=== PATIENT | male | born 1955 | race Caucasian/White ===

== ENCOUNTER 2023-05-10 14:15 | Emergency (ER) | payer MEDICARE, OTHER ==
[~2023-05-10] VITALS: Ht 182.9 cm; Wt 91.0 kg
[2023-05-10 15:09] LABS: Basophils # (auto) 0 10 ^3/uL (0-0.2); Basophils % (auto) 0.2 % (0.0-2.0); Eosinophils # (auto) 0.2 10 ^3/uL (0-0.8); Eosinophils % (auto) 3.3 % (0.0-7.0); Hematocrit 40.8 % (41.0-53.0); Lymphocytes # (auto) 2.4 10 ^3/uL (0.4-5.4); Lymphocytes % (auto) 38.9 % (10.0-50.0); Mean Corpuscular Hemoglobin 30.2 pg (28.0-32.0); Mean Corpuscular Hgb Conc. 34.4 g/dL (32.0-36.0); Mean Corpuscular Volume 87.9 fL (80.0-100.0); Monocytes # (auto) 0.6 10 ^3/uL (0-1.3); Monocytes % (auto) 10.4 % (0.0-12.0); Neutrophils # (auto) 2.9 10 ^3/uL (1.6-8.6); Neutrophils % (auto) 47.2 % (37.0-80.0); Nucleated Red Blood Cells % 0.1 %; Red Blood Cells 4.64 10^6/uL (4.5-5.90); Red Cell Distribution Width 12.5 % (11.8-14.3); White Blood Cell 6.1 10^3/uL (4.4-10.8)
[2023-05-10 15:30] LABS: Albumin 3.8 g/dL (3.4-5.0); BUN/Creatinine Ratio 15.2 (10.0-20.0); Calcium 8.7 mg/dL (8.5-10.1); Potassium 4.1 mmol/L (3.5-5.1)
[2023-05-10 15:33] LABS: Bilirubin, Total 0.4 mg/dL (0.2-1.0); Total Protein 7.5 g/dL (6.4-8.2)
[2023-05-10 15:58] LABS: Urine Bacteria NONE SEEN /hpf (None Seen); Urine Blood Negative /uL (Negative); Urine Specific Gravity 1.022 (1.001-1.035); Urine WBC 1 /hpf (0 - 3)
[2023-05-10] MEDS ORDERED: IBU600T PO (16:57)
[2023-05-10 17:24] VITALS: BP 138/84
== END 2023-05-10 17:25 | disposition home or self-care (01) ==
LOC: ER 14:15
DX: S86.912A Strain of unspecified muscle(s) and tendon(s) at lower leg level, left leg, initial encounter (principal); S86.911A Strain of unspecified muscle(s) and tendon(s) at lower leg level, right leg, initial encounter; M79.605 Pain in left leg; M79.604 Pain in right leg; I10 Essential (primary) hypertension; E11.9 Type 2 diabetes mellitus without complications; Z91.041 Radiographic dye allergy status; X58.XXXA Exposure to other specified factors, initial encounter; Y93.89 Activity, other specified; Y92.89 Other specified places as the place of occurrence of the external cause; Y99.8 Other external cause status
CPT/HCPCS: 36415; 80053; 81001; 82962; 83880; 84484; 85025; 93005; 93970

== ENCOUNTER 2023-12-16 13:14 | Emergency (ER) | payer MEDICARE, OTHER ==
[~2023-12-16] VITALS: Ht 390.7 cm; Wt 98.1 kg
[~2023-12-16 13:14] MED LIST: IBU600T PO
[2023-12-16 14:54] VITALS: BP 160/96; PULSE 76; RESP 18; TEMP 98.1; O2SAT 97
[2023-12-16] MEDS ORDERED: CEPH500C PO (15:22)
[2023-12-16] MEDS ORDERED: ACET-1080 PO (15:22)
== END 2023-12-16 15:34 | disposition home or self-care (01) ==
LOC: ER 13:14 → EDBD 13:14 → ER 15:29
DX: S63.286A Dislocation of proximal interphalangeal joint of right little finger, initial encounter (principal); S10.93XA Contusion of unspecified part of neck, initial encounter; S90.422A Blister (nonthermal), left great toe, initial encounter; I10 Essential (primary) hypertension; E11.9 Type 2 diabetes mellitus without complications; E78.5 Hyperlipidemia, unspecified; Z79.1 Long term (current) use of non-steroidal anti-inflammatories (NSAID); Z79.899 Other long term (current) drug therapy; Z88.8 Allergy status to other drugs, medicaments and biological substances; Y04.2XXA Assault by strike against or bumped into by another person, initial encounter; Y93.89 Activity, other specified; Y92.89 Other specified places as the place of occurrence of the external cause; Y99.8 Other external cause status
CPT/HCPCS: 26770; 73140